=== PATIENT | male | born 1935 | race Hispanic/Latino ===

== ENCOUNTER → 2022-03-04 | Outpatient (CLI) | payer OTHER | END | disposition home or self-care (01) | LOC: RAH 11:04 | PROVIDERS: ATTEND Internal Medicine Medical Oncology | DX: C88.4 Extranodal marginal zone B-cell lymphoma of mucosa-associated lymphoid tissue [MALT-lymphoma] (principal); K11.8 Other diseases of salivary glands; R59.0 Localized enlarged lymph nodes | CPT/HCPCS: 76536 ==

== ENCOUNTER → 2022-03-20 | Outpatient (CLI) | payer OTHER ==
[~2022-03-20] MED LIST: LIDOCAINE HCL MPF 1% 5ML VIAL ONE
[2022-03-20 10:40] LABS: PROTHROMBIN TIME 10.9 SEC (9.6-11.6)
[2022-03-20 10:41] LABS: PARTIAL THROMBOPLASTIN TIME 26.8 SEC (26.3-35.5)
== END | disposition home or self-care (01) ==
LOC: RAH 09:09
PROVIDERS: ATTEND Internal Medicine Medical Oncology
DX: R59.0 Localized enlarged lymph nodes (principal); C88.4 Extranodal marginal zone B-cell lymphoma of mucosa-associated lymphoid tissue [MALT-lymphoma]; D47.2 Monoclonal gammopathy; I10 Essential (primary) hypertension; E78.00 Pure hypercholesterolemia, unspecified; Z87.891 Personal history of nicotine dependence; Z81.1 Family history of alcohol abuse and dependence; Z80.7 Family history of other malignant neoplasms of lymphoid, hematopoietic and related tissues; Z79.01 Long term (current) use of anticoagulants
CPT/HCPCS: 38505; 85610; 85730; 87070; 36415; 88305; 76942; J3490

== ENCOUNTER 2022-08-02 20:24 | Inpatient (IN) | payer OTHER ==
[~2022-08-02] VITALS: Ht 175.3 cm; Wt 53.1 kg
[2022-08-02 21:00] LABS: BASOPHILS % (AUTO) 0.4 % (0.0-5.0); EOSINOPHILS % (AUTO) 1.5 % (0.0-8.0); HEMATOCRIT 35.2 % (42-54); LYMPHOCYTES % (AUTO) 7.9 % (21.0-51.0); MEAN CORPUSCULAR HEMOGLOBIN 30.2 pg (27.0-33.0); MEAN CORPUSCULAR HGB CONC 34.9 g/dL (32.0-36.0); MEAN CORPUSCULAR VOLUME 86.5 fL (79-99); MONOCYTES % (AUTO) 3.5 % (3.0-13.0); NEUTROPHILS % (AUTO) 86.1 % (40.0-77.0); PLATELET COUNT (AUTO) 110 K/uL (130-400); RED BLOOD CELL COUNT(AUTO) 4.07 MIL/uL (4.50-6.20); RED CELL DISTRIBUTION WIDTH 14.1 % (11.0-15.5); WHITE BLOOD COUNT (AUTO) 10.8 K/uL (4.8-10.8)
[2022-08-02 21:32] LABS: B-TYPE NATRIURETIC PEPTIDE 1220 pg/mL (0-100)
[2022-08-02 21:36] LABS: CREATININE 1.2 mg/dL (0.5-1.5); POTASSIUM 3.7 mmol/L (3.5-5.1)
[2022-08-02 21:42] LABS: ALBUMIN 2.3 g/dL (3.5-5.0); TOTAL PROTEIN, SERUM 9.1 g/dL (6.0-8.3)
[2022-08-02] MEDS ORDERED: CEFTRIAXONE 1G VIAL IVP ONE (22:00)
[2022-08-02] MEDS ORDERED: 0.9%NACL 1000ML 1,000 ML IV ONE (22:00)
[2022-08-02] MEDS ORDERED: HEPARIN 25,000 UNITS/250ML D5W 250 ML IV SCH (22:00)
[2022-08-02] MEDS ORDERED: IOHEXOL 350 MG/ML 100ML INFUS..BTL IV ONE (22:23)
[2022-08-02] MEDS ORDERED: MORPHINE 4 MG SYG IV PRN (22:30)
[2022-08-02] MEDS ORDERED: ONDANSETRON 4MG INJ IV PRN (22:30)
[2022-08-02] MEDS: OSELTAMIVIR PHOSPHATE 75 MG CAP PO SCH ×2 (22:30→22:52)
[2022-08-02] MEDS ORDERED: PHARMACY COMMUNICATION MISC SCH (22:30)
[2022-08-02] MEDS: CEFTRIAXONE 1G VIAL IV SCH (22:30)
[2022-08-02] MEDS ORDERED: LACTATED RINGERS IV ONE (22:30)
[2022-08-02] MEDS: ACETAMINOPHEN 325 MG TAB PO ONE ×2 (22:43→23:40)
[2022-08-02] MEDS: AZITHROMYCIN 500MG+NS 250ML IVPB SCH (22:43)
[2022-08-02] MEDS: ASPIRIN 81MG CHEW TAB PO ONE ×2 (22:43→23:40)
[2022-08-02] MEDS: NITROGLYCERIN 1GM OINT 1 INCH/1GM TD SCH (22:44)
[2022-08-02] MEDS: DOXYCYCLINE 100MG+NS 250ML 250 ML IV SCH (22:52)
[2022-08-02] MEDS ORDERED: HEPARIN 5,000 UNIT VIAL ONE (22:54)
[2022-08-02 23:08] LABS: INR 1.25 (0.85-1.15); PROTHROMBIN TIME 13.5 SEC (9.6-11.6)
[2022-08-02] MEDS: IPRATROPIUM/ALBUTEROL SULFATE 3 ML SOLUTION IH SCH (23:29)
[2022-08-02 23:40] LABS: APPEARANCE,URINE CLEAR (CLEAR); BILIRUBIN,URINE NEGATIVE (NEGATIVE); COLOR,URINE YELLOW (YELLOW); GLUCOSE, URINE (UA) NEGATIVE (NEGATIVE); KETONES,URINE NEGATIVE (NEGATIVE); LEUKOCYTE ESTERASE ,URINE NEGATIVE Leu/uL (NEGATIVE); NITRATE,URINE NEGATIVE (NEGATIVE); OCCULT BLOOD,URINE LARGE (NEGATIVE); PROTEIN,URINE TRACE mg/dL (NEGATIVE); UROBILINOGEN,URINE 0.2 mg/dL (0.2-1.0)
[2022-08-02 23:44] LABS: MUCUS,URINE RARE LPF (None Seen); RBC,URINE 0-1 /HPF (0-1); SQUAMOUS EPITHELIAL CELL,UR RARE /HPF (0-2); WBC,URINE 0-1 /HPF (0-1)
[2022-08-03] MEDS: ASPIRIN 81MG CHEW TAB PO ONE (00:30)
[2022-08-03] MEDS: ACETAMINOPHEN 325 MG TAB PO ONE (00:30)
[2022-08-03] MEDS: OSELTAMIVIR PHOSPHATE 75 MG CAP PO SCH (00:30)
[2022-08-03 05:28] LABS: INR 1.24 (0.85-1.15); PROTHROMBIN TIME 13.4 SEC (9.6-11.6)
[2022-08-03 05:42] LABS: CREATININE 0.9 mg/dL (0.5-1.5); MAGNESIUM 1.4 mg/dL (1.80-2.40); PHOSPHORUS 2.7 mg/dL (2.5-4.9); POTASSIUM 3.3 mmol/L (3.5-5.1); THYROID STIMULATING HORMONE 0.72 uIU/mL (0.36-3.74)
[2022-08-03 07:28] LABS: BASOPHILS % (AUTO) 0.4 % (0.0-5.0); EOSINOPHILS % (AUTO) 0.1 % (0.0-8.0); HEMATOCRIT 31.3 % (42-54); LYMPHOCYTES % (AUTO) 15.6 % (21.0-51.0); MEAN CORPUSCULAR HEMOGLOBIN 30.4 pg (27.0-33.0); MEAN CORPUSCULAR HGB CONC 34.5 g/dL (32.0-36.0); MEAN CORPUSCULAR VOLUME 88.2 fL (79-99); MONOCYTES % (AUTO) 4.7 % (3.0-13.0); NEUTROPHILS % (AUTO) 78.9 % (40.0-77.0); PLATELET COUNT (AUTO) 90 K/uL (130-400); RED BLOOD CELL COUNT(AUTO) 3.55 MIL/uL (4.50-6.20); RED CELL DISTRIBUTION WIDTH 14.3 % (11.0-15.5); WHITE BLOOD COUNT (AUTO) 7.6 K/uL (4.8-10.8)
[2022-08-03] MEDS: NITROGLYCERIN 1GM OINT 1 INCH/1GM TD SCH ×3 (07:32→22:39)
[2022-08-03] MEDS: IPRATROPIUM/ALBUTEROL SULFATE 3 ML SOLUTION IH SCH ×3 (07:42→18:40)
[2022-08-03] MEDS: OSELTAMIVIR SUSP 15 MG/ML (6 CAPS/29ML) PO SCH ×4 (09:00→21:37)
[2022-08-03] MEDS: DOXYCYCLINE 100MG+NS 250ML 250 ML IV SCH ×2 (09:32→22:39)
[2022-08-03] MEDS: FAMOTIDINE 20MG VIAL IV SCH (09:32)
[2022-08-03] MEDS: ASPIRIN 81MG CHEW TAB PO SCH (09:32)
[2022-08-03] MEDS ORDERED: LIDOCAINE HCL-MPF 1% 2ML VIAL IV PRN (10:00)
[2022-08-03] MEDS ORDERED: POTASSIUM CHLORIDE 20MEQ/100ML 100 ML IV PRN (10:00)
[2022-08-03 14:45] LABS: INR 1.09 (0.85-1.15); PROTHROMBIN TIME 11.8 SEC (9.6-11.6)
[2022-08-03 14:46] LABS: PARTIAL THROMBOPLASTIN TIME 71.6 SEC (26.3-35.5)
[2022-08-03] MEDS: AZITHROMYCIN 500MG+NS 250ML IVPB SCH (21:38)
[2022-08-03] MEDS: CEFTRIAXONE 1G VIAL IV SCH (22:39)
[2022-08-04 02:27] LABS: INR 1.05 (0.85-1.15); PROTHROMBIN TIME 11.4 SEC (9.6-11.6)
[2022-08-04 02:29] LABS: PARTIAL THROMBOPLASTIN TIME 60.6 SEC (26.3-35.5)
[2022-08-04 05:44] LABS: BASOPHILS % (AUTO) 0.3 % (0.0-5.0); HEMATOCRIT 31.2 % (42-54); LYMPHOCYTES % (AUTO) 8.3 % (21.0-51.0); MEAN CORPUSCULAR HEMOGLOBIN 30.4 pg (27.0-33.0); MEAN CORPUSCULAR HGB CONC 33.7 g/dL (32.0-36.0); MEAN CORPUSCULAR VOLUME 90.4 fL (79-99); NEUTROPHILS % (AUTO) 85.9 % (40.0-77.0); PLATELET COUNT (AUTO) 55 K/uL (130-400); RED BLOOD CELL COUNT(AUTO) 3.45 MIL/uL (4.50-6.20); RED CELL DISTRIBUTION WIDTH 14.2 % (11.0-15.5); WHITE BLOOD COUNT (AUTO) 7.8 K/uL (4.8-10.8)
[2022-08-04 05:53] LABS: CREATININE 0.8 mg/dL (0.5-1.5); POTASSIUM 3.4 mmol/L (3.5-5.1)
[2022-08-04] MEDS: NITROGLYCERIN 1GM OINT 1 INCH/1GM TD SCH ×2 (06:16→14:23)
[2022-08-04] MEDS: POTASSIUM CHLORIDE 10% ELIXIR 20 MEQ/15 ML UDCUP PO PRN ×2 (06:17→09:25)
[2022-08-04] MEDS: IPRATROPIUM/ALBUTEROL SULFATE 3 ML SOLUTION IH SCH ×5 (06:53→23:37)
[2022-08-04 08:17] LABS: INR 1.02 (0.85-1.15); PROTHROMBIN TIME 11.1 SEC (9.6-11.6)
[2022-08-04 08:18] LABS: PARTIAL THROMBOPLASTIN TIME 58.5 SEC (26.3-35.5)
[2022-08-04] MEDS: ASPIRIN 81MG CHEW TAB PO SCH (09:07)
[2022-08-04] MEDS: FAMOTIDINE 20MG VIAL IV SCH (09:07)
[2022-08-04] MEDS: OSELTAMIVIR SUSP 15 MG/ML (6 CAPS/29ML) PO SCH ×4 (09:09→21:10)
[2022-08-04] MEDS: ACETAMINOPHEN 325 MG TAB PO PRN ×2 (09:27→17:32)
[2022-08-04] MEDS: DOXYCYCLINE 100MG+NS 250ML 250 ML IV SCH (11:02)
[2022-08-04] MEDS: GUAIFENESIN-DM 200/20 MG 10 ML PO PRN ×2 (11:58→17:32)
[2022-08-04] MEDS ORDERED: FUROSEMIDE 40MG VIAL ONE (17:27)
[2022-08-04] MEDS ORDERED: FUROSEMIDE 40MG VIAL IV ONE (17:30)
[2022-08-04 17:31] LABS: ABG BASE EXCESS -3.9 mmol/L (-2.0-3.0); ABG HCO3 20.2 mmol/L (21.0-28.0); ABG OXYGEN SATURATION 97.1 % (95.0-99.0); ABG PCO2 34 mmHg (35-48)
[2022-08-04] MEDS: ATORVASTATIN 40 MG TABLET PO SCH (20:59)
[2022-08-04] MEDS: AZITHROMYCIN 500MG+NS 250ML IVPB SCH (21:01)
[2022-08-04] MEDS ORDERED: LORAZEPAM 1 MG TABLET PO SCH (21:30)
[2022-08-05] VITALS (7 sets, daily range): BP systolic 113–162; BP diastolic 59–86
[2022-08-05] MEDS: CEFTRIAXONE 1G VIAL IV SCH (00:32)
[2022-08-05] MEDS: NITROGLYCERIN 1GM OINT 1 INCH/1GM TD SCH ×4 (00:32→22:13)
[2022-08-05] MEDS: DOXYCYCLINE 100MG+NS 250ML 250 ML IV SCH (00:32)
[2022-08-05 01:21] LABS: BASOPHILS % (AUTO) 0.2 % (0.0-5.0); EOSINOPHILS % (AUTO) 0.1 % (0.0-8.0); HEMATOCRIT 32.6 % (42-54); LYMPHOCYTES % (AUTO) 6.1 % (21.0-51.0); MEAN CORPUSCULAR HEMOGLOBIN 30.5 pg (27.0-33.0); MEAN CORPUSCULAR VOLUME 87.2 fL (79-99); MONOCYTES % (AUTO) 5.4 % (3.0-13.0); NEUTROPHILS % (AUTO) 87.5 % (40.0-77.0); PLATELET COUNT (AUTO) 53 K/uL (130-400); RED BLOOD CELL COUNT(AUTO) 3.74 MIL/uL (4.50-6.20); RED CELL DISTRIBUTION WIDTH 13.7 % (11.0-15.5); WHITE BLOOD COUNT (AUTO) 10.1 K/uL (4.8-10.8)
[2022-08-05] MEDS ORDERED: MORPHINE 2 MG SYG IVP ONE (01:30)
[2022-08-05] MEDS ORDERED: FUROSEMIDE 20MG VIAL ONE (01:51)
[2022-08-05 01:53] LABS: ABG BASE EXCESS -3.9 mmol/L (-2.0-3.0); ABG OXYGEN SATURATION 96.9 % (95.0-99.0); ABG PCO2 49 mmHg (35-48)
[2022-08-05] MEDS ORDERED: FUROSEMIDE 20MG VIAL IV ONE (02:00)
[2022-08-05 02:33] LABS: CREATININE 0.7 mg/dL (0.5-1.5); POTASSIUM 3.7 mmol/L (3.5-5.1)
[2022-08-05 02:37] LABS: ALBUMIN 1.8 g/dL (3.5-5.0); MAGNESIUM 1.4 mg/dL (1.80-2.40); TOTAL PROTEIN, SERUM 7.9 g/dL (6.0-8.3)
[2022-08-05 02:39] LABS: B-TYPE NATRIURETIC PEPTIDE 1270 pg/mL (0-100)
[2022-08-05 03:28] LABS: INR 1.01 (0.85-1.15); PROTHROMBIN TIME 10.9 SEC (9.6-11.6)
[2022-08-05 03:29] LABS: PARTIAL THROMBOPLASTIN TIME 33.7 SEC (26.3-35.5)
[2022-08-05] MEDS ORDERED: HEPARIN 25,000 UNITS/250ML D5W 250 ML IV SCH (03:30)
[2022-08-05] MEDS ORDERED: MAGNESIUM 2GM PREMIX 50ML 50 ML IV PRN (03:30)
[2022-08-05] MEDS ORDERED: HEPARIN 5,000 UNIT VIAL SQ ONE (04:00)
[2022-08-05] MEDS: IPRATROPIUM/ALBUTEROL SULFATE 3 ML SOLUTION IH SCH ×3 (06:31→18:57)
[2022-08-05] MEDS: FAMOTIDINE 20MG VIAL IV SCH (08:29)
[2022-08-05] MEDS: ASPIRIN 81MG CHEW TAB PO SCH (08:29)
[2022-08-05] MEDS ORDERED: FUROSEMIDE 40MG VIAL IV SCH ×2 (09:00)
[2022-08-05] MEDS ORDERED: ZOSYN 3.375GM +NS 50ML IV SCH (09:00)
[2022-08-05 09:14] LABS: ABG BASE EXCESS 0.3 mmol/L (-2.0-3.0); ABG OXYGEN SATURATION 91.8 % (95.0-99.0); ABG PCO2 36 mmHg (35-48)
[2022-08-05] MEDS: MORPHINE 2 MG SYG IV PRN ×2 (09:20→15:30)
[2022-08-05] MEDS ORDERED: MELA1TAB16 PO (09:50)
[2022-08-05] MEDS ORDERED: FERR324T12 PO (09:50)
[2022-08-05] MEDS ORDERED: ALBU90AE2 IH (09:50)
[2022-08-05] MEDS ORDERED: FAMO20TA8 PO (09:50)
[2022-08-05] MEDS ORDERED: TAMS-1 PO (09:50)
[2022-08-05] MEDS ORDERED: COMPOUND PO MISCELLANEOUS 1 EACH MISC MISC PRN (10:00)
[2022-08-05 10:15] LABS: THYROID STIMULATING HORMONE 0.87 uIU/mL (0.36-3.74)
[2022-08-05] MEDS: OSELTAMIVIR SUSP 15 MG/ML (6 CAPS/29ML) PO SCH ×4 (10:42→22:12)
[2022-08-05] MEDS ORDERED: MAGNESIUM 2GM PREMIX 50ML 50 ML IV SCH (13:00)
[2022-08-05] MEDS: ZIPRASIDONE MESYLATE 20 MG/VIAL IM PRN ×2 (13:10→22:24)
[2022-08-05] MEDS: ZOSYN 3.375GM +NS 50ML IV SCH ×2 (15:23→22:11)
[2022-08-05] MEDS ORDERED: SOLU-MEDROL 40MG VIAL ONE (15:36)
[2022-08-05] MEDS ORDERED: FUROSEMIDE 40MG VIAL ONE (15:37)
[2022-08-05] MEDS: SOLU-MEDROL 40MG VIAL IVP SCH ×2 (15:39→22:14)
[2022-08-05] MEDS: FUROSEMIDE 40MG VIAL IV SCH (15:39)
[2022-08-05] MEDS: AZITHROMYCIN 500MG+NS 250ML IVPB SCH (22:10)
[2022-08-05] MEDS: ATORVASTATIN 40 MG TABLET PO SCH (22:12)
[2022-08-06 00:03] VITALS: BP_SYST 121; BP_SYST 122; BP_SYST 136; BP_DIAS 54; BP_DIAS 61; BP_DIAS 68
[2022-08-06] MEDS: IPRATROPIUM/ALBUTEROL SULFATE 3 ML SOLUTION IH SCH ×3 (00:26→11:31)
[2022-08-06] MEDS: FUROSEMIDE 40MG VIAL IV SCH ×2 (01:58→13:11)
[2022-08-06 03:50] LABS: ABG BASE EXCESS 2.9 mmol/L (-2.0-3.0); ABG HCO3 28.6 mmol/L (21.0-28.0); ABG OXYGEN SATURATION 98.6 % (95.0-99.0); ABG PCO2 48 mmHg (35-48)
[2022-08-06 03:55] LABS: BASOPHILS % (AUTO) 0.1 % (0.0-5.0); HEMATOCRIT 29.4 % (42-54); LYMPHOCYTES % (AUTO) 3.9 % (21.0-51.0); MEAN CORPUSCULAR HEMOGLOBIN 30.8 pg (27.0-33.0); MEAN CORPUSCULAR VOLUME 90.5 fL (79-99); MONOCYTES % (AUTO) 3.2 % (3.0-13.0); NEUTROPHILS % (AUTO) 91.7 % (40.0-77.0); PLATELET COUNT (AUTO) 87 K/uL (130-400); RED BLOOD CELL COUNT(AUTO) 3.25 MIL/uL (4.50-6.20); RED CELL DISTRIBUTION WIDTH 13.5 % (11.0-15.5); WHITE BLOOD COUNT (AUTO) 7.9 K/uL (4.8-10.8)
[2022-08-06 04:03] LABS: INR 1.05 (0.85-1.15); PROTHROMBIN TIME 11.4 SEC (9.6-11.6)
[2022-08-06 04:08] LABS: ALBUMIN 1.7 g/dL (3.5-5.0); BILIRUBIN,DIRECT 0.1 mg/dL (0.0-0.3); CREATININE 0.9 mg/dL (0.5-1.5); MAGNESIUM 2.1 mg/dL (1.80-2.40); POTASSIUM 3.5 mmol/L (3.5-5.1); TOTAL PROTEIN, SERUM 7.5 g/dL (6.0-8.3)
[2022-08-06] MEDS: SOLU-MEDROL 40MG VIAL IVP SCH (06:43)
[2022-08-06] MEDS: ZOSYN 3.375GM +NS 50ML IV SCH ×2 (06:43→13:11)
[2022-08-06] MEDS: NITROGLYCERIN 1GM OINT 1 INCH/1GM TD SCH ×2 (06:44→14:59)
[2022-08-06 07:00] VITALS: BP 147/58
[2022-08-06] MEDS: OSELTAMIVIR SUSP 15 MG/ML (6 CAPS/29ML) PO SCH ×2 (08:29)
[2022-08-06] MEDS: ASPIRIN 81MG CHEW TAB PO SCH (08:31)
[2022-08-06] MEDS: KCL 20 MEQ ERTAB PO PRN ×2 (08:31→11:00)
[2022-08-06] MEDS: FAMOTIDINE 20MG VIAL IV SCH (08:32)
[2022-08-06] MEDS: GUAIFENESIN-DM 200/20 MG 10 ML PO PRN (08:48)
[2022-08-06] MEDS ORDERED: FONDAPARINUX SODIUM 2.5 MG/0.5 ML SQ SCH (09:00)
[2022-08-06 11:00] VITALS: BP 117/57
[2022-08-06] MEDS ORDERED: TAMSULOSIN HCL 0.4 MG CAP.ER.24H PO SCH (12:30)
[2022-08-06 13:15] VITALS: BP 117/55
[2022-08-06 16:00] VITALS: BP 112/71
[2022-08-06] MEDS ORDERED: SOLU-MEDROL 40MG VIAL IVP SCH (17:00)
== END 2022-08-06 17:32 | DRG 871 ==
LOC: EDH 20:24 → EDHIP 22:06 → 2AH 08-05 00:36
PROVIDERS: ADMIT Internal Medicine; ATTEND Internal Medicine
PROC: 5A09357 Assistance with Respiratory Ventilation, Less than 24 Consecutive Hours, Continuous Positive Airway Pressure (ICD-10-PCS; principal; 2022-08-05)
DX: A41.9 Sepsis, unspecified organism (principal); G92.8 Other toxic encephalopathy; I21.A1 Myocardial infarction type 2; J96.01 Acute respiratory failure with hypoxia; J15.6 Pneumonia due to other Gram-negative bacteria; J10.08 Influenza due to other identified influenza virus with other specified pneumonia; I82.621 Acute embolism and thrombosis of deep veins of right upper extremity; E87.1 Hypo-osmolality and hyponatremia; E87.6 Hypokalemia; I50.9 Heart failure, unspecified; I25.10 Atherosclerotic heart disease of native coronary artery without angina pectoris; I11.0 Hypertensive heart disease with heart failure; F41.9 Anxiety disorder, unspecified; R62.7 Adult failure to thrive; D64.9 Anemia, unspecified; D69.6 Thrombocytopenia, unspecified; F17.210 Nicotine dependence, cigarettes, uncomplicated; Z20.822 Contact with and (suspected) exposure to COVID-19; Z79.01 Long term (current) use of anticoagulants; Z85.71 Personal history of Hodgkin lymphoma; Z82.49 Family history of ischemic heart disease and other diseases of the circulatory system
CPT/HCPCS: 36415; 36600; 71045; 71260; 74177; 80048; 80053; 80076; 81001; 82533; 82803; 82948; 83605; 83735; 83880; 83883; 84100; 84145; 84443; 84484; 85025; 85378; 85610; 85730; 86334; 86850; 86900; 86901; 87040; 87071; 87077; 87186; 87205; 87635; 87804; 92610; 93005; 93306; 93356; 93970; 93971; 94640; 94660; 94664; 97039; C9803; G0378; J0456; J0696; J1644; J1652; J1940; J2543; J2920; J3475; J3486; J3490; Q9967

== ENCOUNTER 2022-12-13 15:09 | Inpatient (IN) | payer OTHER ==
[~2022-12-13] VITALS: Ht 167.6 cm; Wt 69.4 kg
[2022-12-13] VITALS (11 sets, daily range): BP systolic 115–131; BP diastolic 61–90
[~2022-12-13 15:09] MED LIST changes: +ALBU90AE2 IH; +FERR324T12 PO; -LIDOCAINE HCL MPF 1% 5ML VIAL ONE; +MELA1TAB16 PO; +TAMS-1 PO
[2022-12-13 15:30] LABS: BASOPHILS % (AUTO) 0.3 % (0.0-5.0); EOSINOPHILS % (AUTO) 0.1 % (0.0-8.0); HEMATOCRIT 33.2 % (42-54); LYMPHOCYTES % (AUTO) 6.3 % (21.0-51.0); MEAN CORPUSCULAR HEMOGLOBIN 28.9 pg (27.0-33.0); MEAN CORPUSCULAR HGB CONC 33.7 g/dL (32.0-36.0); MEAN CORPUSCULAR VOLUME 85.6 fL (79-99); MONOCYTES % (AUTO) 5.3 % (3.0-13.0); NEUTROPHILS % (AUTO) 87.2 % (40.0-77.0); PLATELET COUNT (AUTO) 208 K/uL (130-400); RED BLOOD CELL COUNT(AUTO) 3.88 MIL/uL (4.50-6.20); RED CELL DISTRIBUTION WIDTH 13.4 % (11.0-15.5); WHITE BLOOD COUNT (AUTO) 10.4 K/uL (4.8-10.8)
[2022-12-13] MEDS ORDERED: IPRATROPIUM/ALBUTEROL SULFATE 3 ML SOLUTION IH ONE (15:30)
[2022-12-13 16:09] LABS: ALBUMIN 2.3 g/dL (3.5-5.0); CREATININE 0.8 mg/dL (0.5-1.5); MAGNESIUM 1.6 mg/dL (1.80-2.40); POTASSIUM 3.8 mmol/L (3.5-5.1); TOTAL PROTEIN, SERUM 8.9 g/dL (6.0-8.3)
[2022-12-13 16:15] LABS: ABG BASE EXCESS -1.1 mmol/L (-2.0-3.0); ABG HCO3 22.1 mmol/L (21.0-28.0); ABG OXYGEN SATURATION 71.4 % (95.0-99.0); ABG PCO2 33 mmHg (35-48)
[2022-12-13 16:22] LABS: ABG BASE EXCESS 0.5 mmol/L (-2.0-3.0); ABG HCO3 22.9 mmol/L (21.0-28.0); ABG OXYGEN SATURATION 92.4 % (95.0-99.0); ABG PCO2 31 mmHg (35-48)
[2022-12-13 16:23] LABS: B-TYPE NATRIURETIC PEPTIDE 2350 pg/mL (0-100)
[2022-12-13] MEDS ORDERED: VANCOMYCIN 1G VIAL IVPB ONE (16:30)
[2022-12-13] MEDS ORDERED: CEFTRIAXONE 2GM VIAL IVP ONE (16:30)
[2022-12-13] MEDS ORDERED: OSELTAMIVIR PHOSPHATE 75 MG CAP PO ONE (16:30)
[2022-12-13] MEDS ORDERED: 0.9%NACL 1000ML 1,000 ML IV ONE (16:30)
[2022-12-13] MEDS ORDERED: AZITHROMYCIN 500MG+NS 250ML IVPB SCH (16:30)
[2022-12-13] MEDS ORDERED: THIAMINE HCL 100 MG/ML 2ML VIAL IVP ONE (17:00)
[2022-12-13] MEDS ORDERED: VANCOMYCIN 1.25 GM/250 ML BAG 250 ML IV ONE (17:00)
[2022-12-13] MEDS ORDERED: FUROSEMIDE 20MG VIAL IVP ONE (17:00)
[2022-12-13] MEDS ORDERED: ONDANSETRON 4MG INJ IVP PRN (17:30)
[2022-12-13] MEDS ORDERED: ACETAMINOPHEN 500 MG TABLET PO PRN (17:30)
[2022-12-13] MEDS ORDERED: FOLIC ACID 5 MG/ML VIAL IV ONE (17:30)
[2022-12-13] MEDS: IPRATROPIUM 0.5 MG/2.5 ML INH IH SCH (18:00)
[2022-12-13] MEDS ORDERED: IPRATROPIUM/ALBUTEROL SULFATE 3 ML SOLUTION IH SCH (18:00)
[2022-12-13] MEDS: PANTOPRAZOLE 40 MG/VIAL IVP SCH (18:08)
[2022-12-13] MEDS: ASPIRIN 81MG CHEW TAB PO SCH (18:09)
[2022-12-13] MEDS: MEROPENEM 500 MG VIAL IVP SCH ×2 (18:09→23:59)
[2022-12-13] MEDS: SOLU-MEDROL 40MG VIAL IVP SCH ×2 (18:09→22:40)
[2022-12-13 18:14] LABS: APPEARANCE,URINE CLEAR (CLEAR); BILIRUBIN,URINE NEGATIVE (NEGATIVE); COLOR,URINE YELLOW (YELLOW); GLUCOSE, URINE (UA) NEGATIVE (NEGATIVE); KETONES,URINE NEGATIVE (NEGATIVE); LEUKOCYTE ESTERASE ,URINE NEGATIVE Leu/uL (NEGATIVE); NITRATE,URINE NEGATIVE (NEGATIVE); OCCULT BLOOD,URINE LARGE (NEGATIVE); PH,URINE 5.5 (5.0-8.0); PROTEIN,URINE 50 mg/dL (NEGATIVE); UROBILINOGEN,URINE 0.2 mg/dL (0.2-1.0)
[2022-12-13] MEDS: BUDESONIDE 0.5 MG/2 ML INH IH SCH (18:26)
[2022-12-13] MEDS: ACETYLCYSTEINE 20% 200MG/ML 4ML VIAL IH SCH (18:26)
[2022-12-13 18:54] LABS: BACTERIA,URINE RARE /HPF (None Seen); MUCUS,URINE RARE LPF (None Seen); WBC,URINE 26-50 /HPF (0-1)
[2022-12-13] MEDS: INSULIN HUMULIN R 100 UNIT/ML 3ML SQ SCH (20:22)
[2022-12-13] MEDS: MAGNESIUM 2GM PREMIX 50ML 50 ML IV SCH (20:24)
[2022-12-13] MEDS ORDERED: BUDESONIDE 0.5 MG/2 ML INH IH SCH (21:00)
[2022-12-13] MEDS ORDERED: FONDAPARINUX SODIUM 2.5 MG/0.5 ML SQ SCH (21:00)
[2022-12-13] MEDS ORDERED: DOXYCYCLINE 100MG+NS 250ML IV SCH (21:00)
[2022-12-13] MEDS ORDERED: ENOXAPARIN SODIUM 40 MG/0.4 ML SYRINGE SQ SCH (21:00)
[2022-12-13 22:09] LABS: CREATININE 0.9 mg/dL (0.5-1.5); MAGNESIUM 1.7 mg/dL (1.80-2.40); POTASSIUM 4.8 mmol/L (3.5-5.1)
[2022-12-13 22:14] LABS: CREATINE KINASE, TOTAL 60 U/L (21-232); MYOGLOBIN 63 ng/mL (10-92)
[2022-12-14] VITALS (28 sets, daily range): BP systolic 112–143; BP diastolic 59–89
[2022-12-14] MEDS: IPRATROPIUM 0.5 MG/2.5 ML INH IH SCH ×4 (00:24→23:09)
[2022-12-14] MEDS: OSELTAMIVIR PHOSPHATE 75 MG CAP PO SCH ×2 (05:08→17:03)
[2022-12-14] MEDS: SOLU-MEDROL 40MG VIAL IVP SCH ×4 (05:08→23:32)
[2022-12-14 05:19] LABS: ALBUMIN 2.1 g/dL (3.5-5.0); CREATININE 0.7 mg/dL (0.5-1.5); MAGNESIUM 1.9 mg/dL (1.80-2.40); POTASSIUM 4.4 mmol/L (3.5-5.1); TOTAL PROTEIN, SERUM 8.4 g/dL (6.0-8.3)
[2022-12-14] MEDS: BUDESONIDE 0.5 MG/2 ML INH IH SCH ×2 (06:34→20:23)
[2022-12-14] MEDS: ACETYLCYSTEINE 20% 200MG/ML 4ML VIAL IH SCH ×3 (06:34→23:10)
[2022-12-14] MEDS: INSULIN HUMULIN R 100 UNIT/ML 3ML SQ SCH ×4 (06:35→20:19)
[2022-12-14] MEDS: DOXYCYCLINE 100MG+NS 250ML IV SCH ×2 (07:58→20:19)
[2022-12-14] MEDS: MAGNESIUM 2GM PREMIX 50ML 50 ML IV SCH (07:58)
[2022-12-14] MEDS: ATORVASTATIN 20 MG TABLET PO SCH (07:59)
[2022-12-14] MEDS: FUROSEMIDE 20MG VIAL IV SCH ×2 (08:01→20:19)
[2022-12-14] MEDS: MEROPENEM 500 MG VIAL IVP SCH ×3 (08:05→23:32)
[2022-12-14] MEDS ORDERED: VANCOMYCIN PROTOCOL PER PHARMACY IV SCH (09:00)
[2022-12-14] MEDS: FONDAPARINUX SODIUM 2.5 MG/0.5 ML SQ SCH (11:39)
[2022-12-14] MEDS: VANCOMYCIN 1.25 GM/250 ML BAG 250 ML IV SCH (17:02)
[2022-12-14] MEDS: PANTOPRAZOLE 40 MG/VIAL IVP SCH (17:03)
[2022-12-14] MEDS: ASPIRIN 81MG CHEW TAB PO SCH (17:03)
[2022-12-14] MEDS ORDERED: SODIUM CHLORIDE 3% FOR INHALATION 4 ML/AMP VIAL.NEB IH ONE (18:32)
[2022-12-14] MEDS: TAMSULOSIN HCL 0.4 MG CAP.ER.24H PO SCH (20:20)
[2022-12-15] VITALS (27 sets, daily range): BP systolic 89–137; BP diastolic 44–89
[2022-12-15] MEDS ORDERED: LORAZEPAM 2 MG/ML 1 ML VIAL ONE (00:08)
[2022-12-15] MEDS ORDERED: LORAZEPAM 2 MG/ML 1 ML VIAL IVP ONE (00:30)
[2022-12-15 03:38] LABS: HEMATOCRIT 32.5 % (42-54); MEAN CORPUSCULAR HGB CONC 32.6 g/dL (32.0-36.0); MEAN CORPUSCULAR VOLUME 88.8 fL (79-99); RED BLOOD CELL COUNT(AUTO) 3.66 MIL/uL (4.50-6.20); RED CELL DISTRIBUTION WIDTH 13.3 % (11.0-15.5); WHITE BLOOD COUNT (AUTO) 17.7 K/uL (4.8-10.8)
[2022-12-15 03:58] LABS: ALBUMIN 2.1 g/dL (3.5-5.0); CREATININE 1.2 mg/dL (0.5-1.5); MAGNESIUM 1.9 mg/dL (1.80-2.40); POTASSIUM 3.8 mmol/L (3.5-5.1); TOTAL PROTEIN, SERUM 8.6 g/dL (6.0-8.3)
[2022-12-15] MEDS: SOLU-MEDROL 40MG VIAL IVP SCH ×4 (04:49→22:48)
[2022-12-15] MEDS: FUROSEMIDE 20MG VIAL IV SCH ×2 (04:49→18:08)
[2022-12-15] MEDS: OSELTAMIVIR PHOSPHATE 75 MG CAP PO SCH ×2 (04:49→16:33)
[2022-12-15] MEDS: INSULIN HUMULIN R 100 UNIT/ML 3ML SQ SCH ×4 (06:30→21:00)
[2022-12-15] MEDS: ACETYLCYSTEINE 20% 200MG/ML 4ML VIAL IH SCH ×3 (07:11→19:30)
[2022-12-15] MEDS: BUDESONIDE 0.5 MG/2 ML INH IH SCH ×2 (07:11→19:29)
[2022-12-15] MEDS: IPRATROPIUM 0.5 MG/2.5 ML INH IH SCH ×3 (07:12→19:29)
[2022-12-15] MEDS: DOXYCYCLINE 100MG+NS 250ML IV SCH ×2 (08:34→21:00)
[2022-12-15] MEDS: MEROPENEM 500 MG VIAL IVP SCH ×2 (08:34→16:41)
[2022-12-15] MEDS ORDERED: 0.9%NACL 1000ML 1,000 ML IV SCH (09:00)
[2022-12-15] MEDS: TAMSULOSIN HCL 0.4 MG CAP.ER.24H PO SCH (09:00)
[2022-12-15] MEDS: ATORVASTATIN 20 MG TABLET PO SCH (09:00)
[2022-12-15 11:27] LABS: ABG BASE EXCESS -6.2 mmol/L (-2.0-3.0); ABG HCO3 21.8 mmol/L (21.0-28.0); ABG OXYGEN SATURATION 89.4 % (95.0-99.0); ABG PCO2 53 mmHg (35-48)
[2022-12-15] MEDS: FONDAPARINUX SODIUM 2.5 MG/0.5 ML SQ SCH (11:57)
[2022-12-15] MEDS: MAGNESIUM 2GM PREMIX 50ML 50 ML IV SCH (12:06)
[2022-12-15 12:38] LABS: ABG BASE EXCESS -5.5 mmol/L (-2.0-3.0); ABG HCO3 22.5 mmol/L (21.0-28.0); ABG OXYGEN SATURATION 85.3 % (95.0-99.0); ABG PCO2 54 mmHg (35-48)
[2022-12-15] MEDS: DEXMEDETOMIDINE 400MCG/NS100ML IV SCH ×3 (13:25→23:00)
[2022-12-15] MEDS ORDERED: DEXMEDETOMIDINE HCL 400 MCG in 0.9%NACL 100ML 100 ML IV SCH (13:30)
[2022-12-15 15:27] LABS: ABG BASE EXCESS -4.7 mmol/L (-2.0-3.0); ABG HCO3 23.3 mmol/L (21.0-28.0); ABG OXYGEN SATURATION 84.7 % (95.0-99.0); ABG PCO2 54 mmHg (35-48)
[2022-12-15] MEDS: ASPIRIN 81MG CHEW TAB PO SCH (16:32)
[2022-12-15] MEDS: PANTOPRAZOLE 40 MG/VIAL IVP SCH (16:41)
[2022-12-15 19:47] LABS: CREATININE 1.1 mg/dL (0.5-1.5); POTASSIUM 4.8 mmol/L (3.5-5.1)
[2022-12-15] MEDS: VANCOMYCIN 1.25 GM/250 ML BAG 250 ML IV SCH (21:00)
[2022-12-16] VITALS (67 sets, daily range): BP systolic 82–150; BP diastolic 44–74
[2022-12-16] MEDS: IPRATROPIUM 0.5 MG/2.5 ML INH IH SCH ×5 (00:08→23:49)
[2022-12-16] MEDS: ACETYLCYSTEINE 20% 200MG/ML 4ML VIAL IH SCH ×5 (00:09→23:49)
[2022-12-16] MEDS: FUROSEMIDE 20MG VIAL IV SCH ×3 (01:53→16:46)
[2022-12-16] MEDS: MEROPENEM 500 MG VIAL IVP SCH ×3 (01:53→16:17)
[2022-12-16] MEDS: DEXMEDETOMIDINE 400MCG/NS100ML IV SCH ×4 (02:30→20:34)
[2022-12-16 03:51] LABS: ABG BASE EXCESS -2.6 mmol/L (-2.0-3.0); ABG HCO3 23.5 mmol/L (21.0-28.0); ABG OXYGEN SATURATION 77.6 % (95.0-99.0); ABG PCO2 45 mmHg (35-48)
[2022-12-16 04:22] LABS: BASOPHILS % (AUTO) 0.1 % (0.0-5.0); HEMATOCRIT 32.6 % (42-54); LYMPHOCYTES % (AUTO) 1.3 % (21.0-51.0); MEAN CORPUSCULAR HEMOGLOBIN 29.4 pg (27.0-33.0); MEAN CORPUSCULAR HGB CONC 33.1 g/dL (32.0-36.0); MEAN CORPUSCULAR VOLUME 88.8 fL (79-99); MONOCYTES % (AUTO) 3.8 % (3.0-13.0); PLATELET COUNT (AUTO) 196 K/uL (130-400); RED BLOOD CELL COUNT(AUTO) 3.67 MIL/uL (4.50-6.20); RED CELL DISTRIBUTION WIDTH 13.3 % (11.0-15.5); WHITE BLOOD COUNT (AUTO) 15.2 K/uL (4.8-10.8)
[2022-12-16 04:31] LABS: POTASSIUM 5.1 mmol/L (3.5-5.1)
[2022-12-16 04:50] LABS: B-TYPE NATRIURETIC PEPTIDE 4820 pg/mL (0-100)
[2022-12-16] MEDS: SOLU-MEDROL 40MG VIAL IVP SCH ×4 (05:04→22:26)
[2022-12-16] MEDS: OSELTAMIVIR PHOSPHATE 75 MG CAP PO SCH ×2 (05:05→17:52)
[2022-12-16 05:16] LABS: INR 1.14 (0.85-1.15); PROTHROMBIN TIME 12.3 SEC (9.6-11.6)
[2022-12-16] MEDS: INSULIN HUMULIN R 100 UNIT/ML 3ML SQ SCH ×4 (06:28→20:33)
[2022-12-16] MEDS ORDERED: ACETYLCYSTEINE 10% 100MG/ML 4ML VIAL ONE (06:32)
[2022-12-16] MEDS ORDERED: FUROSEMIDE 20MG VIAL IV SCH (07:00)
[2022-12-16] MEDS: BUDESONIDE 0.5 MG/2 ML INH IH SCH ×2 (07:11→18:54)
[2022-12-16] MEDS: TAMSULOSIN HCL 0.4 MG CAP.ER.24H PO SCH (08:10)
[2022-12-16] MEDS: DOXYCYCLINE 100MG+NS 250ML IV SCH ×2 (08:10→20:33)
[2022-12-16] MEDS: KCL 20 MEQ ERTAB PO SCH ×2 (08:11→20:33)
[2022-12-16] MEDS: ATORVASTATIN 20 MG TABLET PO SCH (08:11)
[2022-12-16 11:55] LABS: CREATININE 1.2 mg/dL (0.5-1.5); POTASSIUM 5.8 mmol/L (3.5-5.1)
[2022-12-16] MEDS: FONDAPARINUX SODIUM 2.5 MG/0.5 ML SQ SCH (12:33)
[2022-12-16] MEDS: PANTOPRAZOLE 40 MG/VIAL IVP SCH (16:17)
[2022-12-16] MEDS: ASPIRIN 81MG CHEW TAB PO SCH (16:40)
[2022-12-16] MEDS: VANCOMYCIN 1.25 GM/250 ML BAG 250 ML IV SCH (17:52)
[2022-12-16 19:17] LABS: POTASSIUM 5.4 mmol/L (3.5-5.1)
[2022-12-17] VITALS (50 sets, daily range): BP systolic 74–147; BP diastolic 42–83
[2022-12-17] MEDS: FUROSEMIDE 40MG VIAL IV SCH ×3 (01:27→16:38)
[2022-12-17] MEDS: MEROPENEM 500 MG VIAL IVP SCH ×3 (01:28→16:37)
[2022-12-17 03:33] LABS: ABG BASE EXCESS -1.8 mmol/L (-2.0-3.0); ABG HCO3 24.2 mmol/L (21.0-28.0); ABG OXYGEN SATURATION 90.2 % (95.0-99.0); ABG PCO2 46 mmHg (35-48)
[2022-12-17 04:30] LABS: CREATININE 0.9 mg/dL (0.5-1.5); POTASSIUM 5.4 mmol/L (3.5-5.1)
[2022-12-17 04:31] LABS: BASOPHILS % (AUTO) 0.1 % (0.0-5.0); HEMATOCRIT 35.6 % (42-54); LYMPHOCYTES % (AUTO) 1.7 % (21.0-51.0); MEAN CORPUSCULAR HEMOGLOBIN 29.1 pg (27.0-33.0); MEAN CORPUSCULAR HGB CONC 31.7 g/dL (32.0-36.0); MEAN CORPUSCULAR VOLUME 91.8 fL (79-99); MONOCYTES % (AUTO) 3.6 % (3.0-13.0); NEUTROPHILS % (AUTO) 93.3 % (40.0-77.0); PLATELET COUNT (AUTO) 268 K/uL (130-400); RED BLOOD CELL COUNT(AUTO) 3.88 MIL/uL (4.50-6.20); RED CELL DISTRIBUTION WIDTH 13.9 % (11.0-15.5); WHITE BLOOD COUNT (AUTO) 15.7 K/uL (4.8-10.8)
[2022-12-17] MEDS: OSELTAMIVIR PHOSPHATE 75 MG CAP PO SCH ×2 (04:34→16:39)
[2022-12-17] MEDS: SOLU-MEDROL 40MG VIAL IVP SCH ×4 (04:34→22:41)
[2022-12-17] MEDS: DEXMEDETOMIDINE 400MCG/NS100ML IV SCH ×4 (04:37→23:37)
[2022-12-17 05:16] LABS: B-TYPE NATRIURETIC PEPTIDE 2890 pg/mL (0-100)
[2022-12-17] MEDS: INSULIN HUMULIN R 100 UNIT/ML 3ML SQ SCH ×4 (06:37→20:53)
[2022-12-17] MEDS: BUDESONIDE 0.5 MG/2 ML INH IH SCH ×2 (06:59→19:16)
[2022-12-17] MEDS: IPRATROPIUM 0.5 MG/2.5 ML INH IH SCH ×4 (06:59→23:40)
[2022-12-17] MEDS: ACETYLCYSTEINE 20% 200MG/ML 4ML VIAL IH SCH ×4 (06:59→23:40)
[2022-12-17] MEDS: ATORVASTATIN 20 MG TABLET PO SCH (09:00)
[2022-12-17] MEDS: TAMSULOSIN HCL 0.4 MG CAP.ER.24H PO SCH (09:00)
[2022-12-17] MEDS: DOXYCYCLINE 100MG+NS 250ML IV SCH ×2 (09:21→22:41)
[2022-12-17] MEDS: FONDAPARINUX SODIUM 2.5 MG/0.5 ML SQ SCH (10:34)
[2022-12-17] MEDS ORDERED: ACETYLCYSTEINE 10% 100MG/ML 4ML VIAL ONE (11:06)
[2022-12-17 11:31] LABS: CREATININE 0.9 mg/dL (0.5-1.5); POTASSIUM 4.5 mmol/L (3.5-5.1)
[2022-12-17 14:59] LABS: ABG BASE EXCESS -6.6 mmol/L (-2.0-3.0); ABG HCO3 24.7 mmol/L (21.0-28.0); ABG OXYGEN SATURATION 97.9 % (95.0-99.0); ABG PCO2 83 mmHg (35-48)
[2022-12-17] MEDS: ASPIRIN 81MG CHEW TAB PO SCH (16:38)
[2022-12-17] MEDS: PANTOPRAZOLE 40 MG/VIAL IVP SCH (16:38)
[2022-12-17] MEDS: VANCOMYCIN 1.25 GM/250 ML BAG 250 ML IV SCH (19:57)
[2022-12-18] VITALS (34 sets, daily range): BP systolic 85–142; BP diastolic 37–82
[2022-12-18] MEDS: MEROPENEM 500 MG VIAL IVP SCH ×3 (01:09→15:56)
[2022-12-18] MEDS: FUROSEMIDE 40MG VIAL IV SCH ×2 (01:10→08:03)
[2022-12-18] MEDS: DEXMEDETOMIDINE 400MCG/NS100ML IV SCH ×3 (04:27→13:33)
[2022-12-18 04:36] LABS: ABG BASE EXCESS -1.2 mmol/L (-2.0-3.0); ABG HCO3 27.1 mmol/L (21.0-28.0); ABG OXYGEN SATURATION 99.3 % (95.0-99.0); ABG PCO2 61 mmHg (35-48)
[2022-12-18 04:37] LABS: BASOPHILS % (AUTO) 0.1 % (0.0-5.0); HEMATOCRIT 32.5 % (42-54); LYMPHOCYTES % (AUTO) 1.9 % (21.0-51.0); MEAN CORPUSCULAR HEMOGLOBIN 29.5 pg (27.0-33.0); MEAN CORPUSCULAR HGB CONC 31.4 g/dL (32.0-36.0); MEAN CORPUSCULAR VOLUME 93.9 fL (79-99); MONOCYTES % (AUTO) 3.4 % (3.0-13.0); NEUTROPHILS % (AUTO) 93.3 % (40.0-77.0); PLATELET COUNT (AUTO) 252 K/uL (130-400); RED BLOOD CELL COUNT(AUTO) 3.46 MIL/uL (4.50-6.20); WHITE BLOOD COUNT (AUTO) 9.4 K/uL (4.8-10.8)
[2022-12-18 05:11] LABS: POTASSIUM 5.3 mmol/L (3.5-5.1)
[2022-12-18] MEDS: ACETYLCYSTEINE 20% 200MG/ML 4ML VIAL IH SCH (06:00)
[2022-12-18] MEDS: OSELTAMIVIR PHOSPHATE 75 MG CAP PO SCH ×2 (06:00→15:56)
[2022-12-18] MEDS: INSULIN HUMULIN R 100 UNIT/ML 3ML SQ SCH ×3 (06:39→15:56)
[2022-12-18] MEDS: SOLU-MEDROL 40MG VIAL IVP SCH ×3 (06:45→15:56)
[2022-12-18] MEDS: BUDESONIDE 0.5 MG/2 ML INH IH SCH (07:28)
[2022-12-18] MEDS: IPRATROPIUM 0.5 MG/2.5 ML INH IH SCH ×2 (07:28→12:16)
[2022-12-18] MEDS: ATORVASTATIN 20 MG TABLET PO SCH (07:28)
[2022-12-18] MEDS: TAMSULOSIN HCL 0.4 MG CAP.ER.24H PO SCH (07:28)
[2022-12-18] MEDS: DOXYCYCLINE 100MG+NS 250ML IV SCH (08:03)
[2022-12-18] MEDS ORDERED: FUROSEMIDE 40MG VIAL IV SCH (09:00)
[2022-12-18] MEDS ORDERED: SODIUM CHLORIDE 7% INHALATION 4 ML VIAL.NEB IH PRN (10:00)
[2022-12-18] MEDS: FONDAPARINUX SODIUM 2.5 MG/0.5 ML SQ SCH (11:43)
[2022-12-18] MEDS ORDERED: MORPHINE 2 MG SYG IVP ONE (13:30)
[2022-12-18] MEDS ORDERED: LORAZEPAM 2 MG/ML 1 ML VIAL IM PRN (13:30)
[2022-12-18] MEDS ORDERED: MORPHINE 2 MG SYG IVP PRN (14:30)
[2022-12-18] MEDS: ASPIRIN 81MG CHEW TAB PO SCH (15:56)
[2022-12-18] MEDS: PANTOPRAZOLE 40 MG/VIAL IVP SCH (15:56)
[2022-12-18] MEDS: VANCOMYCIN 1.25 GM/250 ML BAG 250 ML IV SCH (15:56)
== END 2022-12-18 16:29 | disposition hospice, inpatient (51) | DRG 871 ==
LOC: EDH 15:09 → EDHIP 16:50 → 2BH 21:19 → 2DH 12-14 15:25 → 2CH 12-15 13:00
PROVIDERS: ADMIT Hospitalist; ATTEND Hospitalist
PROC: 5A09357 Assistance with Respiratory Ventilation, Less than 24 Consecutive Hours, Continuous Positive Airway Pressure (ICD-10-PCS; principal; 2022-12-13)
PROC: 5A09357 Assistance with Respiratory Ventilation, Less than 24 Consecutive Hours, Continuous Positive Airway Pressure (ICD-10-PCS; 2022-12-14)
PROC: 5A09357 Assistance with Respiratory Ventilation, Less than 24 Consecutive Hours, Continuous Positive Airway Pressure (ICD-10-PCS; 2022-12-15)
PROC: 5A09357 Assistance with Respiratory Ventilation, Less than 24 Consecutive Hours, Continuous Positive Airway Pressure (ICD-10-PCS; 2022-12-16)
PROC: 5A09357 Assistance with Respiratory Ventilation, Less than 24 Consecutive Hours, Continuous Positive Airway Pressure (ICD-10-PCS; 2022-12-17)
PROC: 5A09357 Assistance with Respiratory Ventilation, Less than 24 Consecutive Hours, Continuous Positive Airway Pressure (ICD-10-PCS; 2022-12-18)
DX: A41.9 Sepsis, unspecified organism (principal); I21.A1 Myocardial infarction type 2; I50.33 Acute on chronic diastolic (congestive) heart failure; J11.08 Influenza due to unidentified influenza virus with specified pneumonia; J80 Acute respiratory distress syndrome; E87.1 Hypo-osmolality and hyponatremia; E44.0 Moderate protein-calorie malnutrition; C85.90 Non-Hodgkin lymphoma, unspecified, unspecified site; Z16.24 Resistance to multiple antibiotics; Z20.822 Contact with and (suspected) exposure to COVID-19; D75.829 Heparin-induced thrombocytopenia, unspecified; T45.515A Adverse effect of anticoagulants, initial encounter; I11.0 Hypertensive heart disease with heart failure; I27.20 Pulmonary hypertension, unspecified; I34.0 Nonrheumatic mitral (valve) insufficiency; N40.0 Benign prostatic hyperplasia without lower urinary tract symptoms; R62.7 Adult failure to thrive; Z66 Do not resuscitate; Z78.9 Other specified health status; I25.2 Old myocardial infarction; Z79.899 Other long term (current) drug therapy; Z82.49 Family history of ischemic heart disease and other diseases of the circulatory system; Z86.718 Personal history of other venous thrombosis and embolism; Z87.01 Personal history of pneumonia (recurrent); Z87.891 Personal history of nicotine dependence; Z68.24 Body mass index [BMI] 24.0-24.9, adult
CPT/HCPCS: 36415; 36600; 71045; 80048; 80053; 80202; 81001; 82435; 82533; 82550; 82570; 82803; 82947; 82948; 83605; 83735; 83874; 83880; 83930; 83935; 84132; 84145; 84295; 84484; 85018; 85025; 85027; 85378; 85610; 85651; 86022; 86140; 86738; 87040; 87071; 87077; 87088; 87186; 87205; 87449; 87635; 87804; 87880; 93005; 93306; 93356; 93970; 94640; 94660; 94664; C9113; C9803; G0378; J0456; J0696; J1652; J1815; J1940; J2060; J2185; J2920; J3411; J3475; J3490; J7030; J7608